=== PATIENT | male | born 1965 | race Caucasian/White ===

== ENCOUNTER 2023-05-19 19:19 | Emergency (ER) | payer MEDICAID ==
[~2023-05-19] VITALS: Ht 182.8 cm; Wt 95.3 kg
[2023-05-19 19:45] LABS: BASO # 0.1 10*3/uL (0.0-0.1); BASO % 0.6 % (0.0-1.0); EOS # 0.1 10*3/uL (0.0-0.4); EOS % 0.9 % (1.0-4.0); HEMATOCRIT 58.2 % (42.0-52.0); LYMPH # 3.6 10*3/uL (1.3-4.4); LYMPH % 25.7 % (27.0-41.0); MEAN CORPUSCULAR HGB CONC 33.3 g/dl (33.0-37.0); MEAN PLATELET VOLUME 9.3 fl (9.6-12.3); MONO # 0.9 10*3/uL (0.1-1.0); MONO % 6.8 % (3.0-9.0); NEUT # 9.1 10*3/uL (2.3-7.9); NEUT % 65.7 % (47.0-73.0); PLATELET COUNT AUTOMATED 309 10*3/uL (130-400); RED BLOOD COUNT 6.47 10*6/uL (4.50-5.90); RED CELL DISTRI WIDTH 13.5 % (0-14.5); WHITE BLOOD COUNT 13.8 10*3/uL (4.8-10.8)
[2023-05-19 20:08] LABS: ALKALINE PHOSPHATASE 95 U/L (46-116); CHLORIDE 103 mmol/L (98-107); CPK 345 U/L (34-171); ETHYL ALCOHOL 194.9 mg/dl (<3); LIPASE 27 U/L (12-53); POTASSIUM 3.6 mmol/L (3.4-5.1); SGPT/ALT 20 U/L (5-49); TOTAL PROTEIN 8.1 gm/dL (6.0-8.0)
[2023-05-19] MEDS ORDERED: CYMBALTA60 MG PO (20:12)
[2023-05-19] MEDS ORDERED: KEPPRA500 MG PO (20:12)
[2023-05-19] MEDS ORDERED: SEROQUEL300 MG PO (20:12)
[2023-05-19] MEDS ORDERED: PRAZOSIN HCL5 MG PO (20:13)
[2023-05-19] MEDS ORDERED: SEROQUEL25 MG PO (20:13)
[2023-05-19] MEDS ORDERED: TRAZODONE150 MG PO (20:13)
[2023-05-19 20:14] LABS: BUN < 5 mg/dl (9-23)
[2023-05-19] MEDS ORDERED: QUETIAPINE FUM200 M3 PO (20:14)
[2023-05-19] MEDS ORDERED: GABAPENTIN ER600 MG PO (20:14)
[2023-05-19] MEDS ORDERED: NEURONTIN800 MG PO (20:15)
[2023-05-19] MEDS ORDERED: DULOXETINE HCL30 MG PO (20:15)
[2023-05-19 20:16] LABS: BILIRUBIN Negative (Negative); BLOOD 1+ (Negative); CLARITY Clear (Clear); COLOR Yellow (Yellow); GLUCOSE Negative (Negative); KETONE Negative (Negative); LEUKO ESTERASE Negative (Negative); NITRITE Negative (Negative); PH 5.5 (4.5-8.0); UROBILINOGEN 0.2 E.U./dl (0.0-1.0)
[2023-05-19] MEDS ORDERED: OMEPRAZOLE20 M3 PO (20:16)
[2023-05-19] MEDS ORDERED: NORVASC5 MG PO (20:16)
[2023-05-19] MEDS ORDERED: TRAZODONE100 MG PO (20:17)
[2023-05-19 20:23] LABS: URINE AMPHETAMINES Negative (1000ng/ml); URINE BARBITURATES Negative (200ng/ml); URINE BENZODIAZEPINES Negative (200ng/ml); URINE CANNABINOIDS (THC) Positive (50ng/ml); URINE COCAINE Negative (300ng/ml); URINE METHADONE Negative (300ng/ml); URINE OPIATES Negative (300ng/ml); URINE PHENCYCLIDINE Negative (25ng/ml)
[2023-05-19 20:26] LABS: BACTERIA TRACE; EPITHELIAL CELLS 0-2; MUCOUS 1+; RBC 16-20 rbc/hpf (0-2)
[2023-05-19] MEDS ORDERED: SODIUM CHLORIDE 0.9% 1,000 ML IV ONE (23:10)
[2023-05-19] MEDS ORDERED: IBUPROFEN 400 MG TAB PO ONE (23:10)
[2023-05-20] MEDS ORDERED: SODIUM CHLORIDE 0.9% 1,000 ML IV ONE (00:40)
[2023-05-20] MEDS ORDERED: Ondansetron Hydrochloride 4 MG/2 ML VIAL IV ONE (08:05)
== END 2023-05-20 10:14 | disposition home or self-care (01) ==
LOC: ED 19:19
PROVIDERS: Internal Medicine
DX: F10.129 Alcohol abuse with intoxication, unspecified (principal); F31.9 Bipolar disorder, unspecified; M19.90 Unspecified osteoarthritis, unspecified site; Z88.8 Allergy status to other drugs, medicaments and biological substances; Z79.899 Other long term (current) drug therapy; Z87.891 Personal history of nicotine dependence; Y90.0 Blood alcohol level of less than 20 mg/100 ml